=== PATIENT | male | born 1970 | race Caucasian/White ===

== ENCOUNTER 2024-11-08 08:22 | Emergency (ER) | payer SELFPAY ==
--- NOTE | ~2024-11-08 | XR_ITS ---
EXAMINATION: XR chest 1V portable DATE: 11/08/2024 08:56 INDICATION: Abdominal pain TECHNIQUE: frontal view of the chest was obtained. COMPARISON: None FINDINGS: Elevation the right hemidiaphragm with mild right basilar atelectasis. Minimal right pleural effusion with blunting at the costophrenic angle. Left lung is clear. No pulmonary edema or pneumothorax. Arc h size is normal. IMPRESSION: 1. Elevation right hemidiaphragm with right basilar atelectasis and minimal right pleural effusion. Reviewed, dictated and finalized at location A. IMPRESSION: 1. Elevation right hemidiaphragm with right basilar atelectasis and minimal rig ht pleural effusion.
--- NOTE | ~2024-11-08 | CT_ITS ---
History: Confusion PROCEDURE: CT head without contrast. COMPARISON: None TECHNIQUE: Axial imaging of the head performed from the skull base to the vertex without IV contrast. Sagittal a nd coronal reformations obtained. Examination is markedly limited by a significant amount of motion artifact. DLP: 1513 mGy-cm FINDINGS: The ventricles are unremarkable in size, shape and position, but enlarged, for patient of this age. The degree of ventricular enlargement is proportional to the sulcal prominence, suggesting diffuse at rophy. Bifrontal atrophy is demonstrated. There is no large mass, significant mass effect or significant midline shift. There is no abnormal extra-axial fluid collection or large intracranial hemorrhage. Significant deviation of the nasal septum is noted, with a prominent nasal spur towards the patient's right. Remaining paranasal sinuses are clear. The mastoid air cells are well aerated. No acute displaced fractures within the overlying cranium. Impression: No large acute intracranial hemorrhage or significant suspicious mass effect, as detailed above. Bifrontal atrophy and age advanced atrophy is also noted. Reviewed, dictated and finalized at location A. Impression: No large acute intracranial hemorrhage or significant suspicious mass effect, a s detailed above. Bifrontal atrophy and age advanced atrophy is also noted.
--- NOTE | ~2024-11-08 | CT_ITS ---
EXAMINATION: CT abdomen pelvis w con DATE: 11/08/2024 09:53 INDICATION: Abdominal distention TECHNIQUE: Computed tomography (CT) of the abdomen and pelvis was performed with 100 mL Omnipaque-350 intravenous contrast. Automated exposure control and iterative reconstruction technique were employe d. The dose-length product was 558.85 mGy-cm. COMPARISON: None FINDINGS: Heart size is normal. Atherosclerotic coronary artery calcific lesion. No pericardial effusion. Very small right pleural effusion. Mild elevation right hemidiaphragm with adjacent right basilar atelecta sis. This appears to result from prominent hepatomegaly with the right hepatic lobe measuring up to 3 0.2 cm craniocaudal length. There are multiple hypoechoic masses throughout the liver with relatively indistinct peripheral margins which are nearly confluent at the dome of the liver and concerning for metastatic disease. Aside from the masses there appears to be some underlying liver surface nodulari ty suggestive of cirrhosis. Cholecystectomy clips the gallbladder fossa. Spleen, pancreas, bilateral adrenal glands and left kidney are normal. There are 4 nonobstructing stones in the right kidney the largest measuring 4 mm. Bladder is normal. Bowels are normal with no evident wall thickening or obstr uction. The appendix is not definitively visualized. No pericecal inflammatory change to suggest acut e appendicitis. Small amount of ascites along the liver and the right upper quadrant and in the pelvi s. No abscess or free intraperitoneal gas. No pathologically enlarged abdominal or pelvic lymphadenop athy. Moderate lumbar and moderate lower thoracic spondylosis. IMPRESSION: 1. Enlarged and likely cirrhotic liver with numerous hypodense/hypoenhancing masses concerning for me tastatic disease potentially of hepatic primary malignancy with no other lesions suspicious for malig nick. Consider ultrasound-guided biopsy. 2. Small amount of ascites and very small right pleural effusion. Reviewed, dictated and finalized at location A. IMPRESSION: 1. Enlarged and likely cirrhotic liver with numerous hypodense/hypoenhancing ma sses concerning for metastatic disease potentially of hepatic primary malignanc y with no other lesions suspicious for malignancy. Consider ultrasound-guided b iopsy. 2. Small amount of ascites and very small right pleural effusion.
[2024-11-08 08:25] VITALS: TEMP 36.3
--- NOTE | 2024-11-08 08:31 | ECG_ITS ---
Test Date: 2024-11-08 08:46:14 Measurements Intervals [place] Rate: 107 P: 78 MT: 134 QRS: 80 QRSD: 97 T: -18 QT: 313 QTc: 419 Interpretive Statements SINUS TACHYCARDIA POSSIBLE INFERIOR MYOCARDIAL INFARCTION , PROBABLY OLD [30 ms Q WAVE IN II/aVF] ABNORMAL RHYTHM ECG No previous ECG available for comparison Electronically Signed On 11-08-2024 13:02:04 CDT by Jason Pollock M.D.
[2024-11-08 08:58] LABS: Hematocrit 29.5 % (40.0-54.0); Hemoglobin 9.1 g/dL (14.0-18.0); Immature Granulocyte Percent A 1.3 % (0.0-0.0); Lymphocytes Absolute Auto 1.86 K/mm3 (1.10-4.50); Mean Corpuscular HGB Conc 30.8 g/dL (32-36); Mean Corpuscular Hemoglobin 26.3 pg (27.0-31.0); Mean Corpuscular Volume 85.3 fL (78.0-102.0); Nucleated Red Blood Cells Absolute Auto 0.00 K/mm3 (0.00-0.00); Nucleated Red Blood Cells Perc 0.0 % (0-0.0); Platelet Count Result 389 K/mm3 (150-420); Red Blood Count 3.46 M/mm3 (4.70-6.10); White Blood Count 17.4 K/mm3 (4.8-10.8)
[2024-11-08 09:06] LABS: Alanine Aminotransferase 110 U/L (6-50); Albumin Level 2.7 g/dL (3.5-5.1); Alkaline Phosphatase > 1000 U/L (38-126); Anion Gap 8 mmol/L (4-12); Aspartate Amino Transferase 265 U/L (17-59); Bilirubin,Total 2.0 mg/dL (0.2-1.3); Blood Urea Nitrogen 21 mg/dL (9-20); Calcium 10.3 mg/dL (8.4-10.2); Carbon Dioxide 33 mmol/L (22-30); Chloride 88 mmol/L (98-107); Estimated CRCL calculation 88 ml/min; Estimated Glomerular Filt Rate > 60; Glucose 183 mg/dL (65-110); Lipase 240 U/L (23-300); Osmolality Calculated 276 mOsm/kg (285-295); Potassium 3.3 mmol/L (3.4-5.0); Sodium 129 mmol/L (137-145); Total Protein 6.4 g/dL (6.3-8.2)
[2024-11-08] MEDS: FUROSEMIDE INJ 40 MG/4 ML VIAL IV PUSH (09:09)
[2024-11-08 09:11] LABS: INR 1.2; Partial Thromboplastin Time 25.5 Sec (23.9-30.70); Prothrombin Time 12.9 Seconds (9.50-12.1)
--- OUTSIDE RECORDS SUMMARY | 2024-11-08 09:32 | XMS_ITS | Patient Health Record ---
Author Organization [facility] [employer] Address [address] [place] [address] [id number] Support Name Relationship Address Phone EMILY ARTHUR Guarantor Unknown Reason For Referral No Information Plan Of Treatment No Information Insurance Providers Payer Name Payer Address Payer Phone Subscriber Number Group Number Insured Name Patient Relationship to Insured Coverage Start Date [facility]age End Date [facility] [id number] [place] [address] [id number] EMILY MORALES Self - patient is the insured
--- OUTSIDE RECORDS SUMMARY | 2024-11-08 09:32 | XMS_ITS | Continuity of Care Document ---
Author Organization [facility] Address [address] [place] [address] Phone Care Team Providers Care Print Inspector Name Role Phone Librado Pinto MD Unavailable Unavailable Procedures Procedure Date ELECTROCARDIOGRAM REPORT EMERGENCY DEPT VISIT ELECTROCARDIOGRAM REPORT EMERGENCY DEPT VISIT BP scrn perf rec interval SUBSEQUENT HOSPITAL CARE HOSPITAL DISCHARGE DAY HT MUSCLE IMAGE SPECT MULT CARDIOVASCULAR STRESS TEST CARDIOVASCULAR STRESS TEST INITIAL HOSPITAL CARE EMERGENCY DEPT VISIT ELECTROCARDIOGRAM REPORT Advance Directives Directive Yes / No Effective Date File Name No Information Encounters Encounter Description Practice Location Reason(s) For Visit Diagnoses Date Provider Providers Copied on Encounter [facility], [address] [facility], [place], [place], [id number], tel:[phone] [facility] ER No Information [facility]. [address] [facility] [place] [id number], [place]. tel:[phone] Referring Provider: Tyler Cunningham, [address] [place], [address]. tel:[phone] [facility], [address] [facility] [place], [id number], tel:[phone] [facility] No Information [facility]av[facility] [address] [facility] [place] [id number], [place]. tel:[phone] Referring Provider: Tyler Cunningham, [address], [place], [address]. tel:[phone] [facility], [address], [place], [place], [id number], [place] tel:[phone] [facility] ER No Information Jessica Márquez. [address], [place], [id number], [place]. tel:[phone] [facility] C[facility], [address], [place], [id number], [place] tel:[phone] [facility] In Patient No Information Alesha Avila. [address], [place], [place], [id number], [place]. tel:[phone] [facility], [address], [place], [id number], [place] tel:[phone] [facility] In Patient No Information Jayson Feliciano. [address], [place], [place], [id number], [place]. tel:[phone] Referring Provider: Rocky Whalen, [address], [place], [address]. tel:[phone] INITIAL [facility] CARE [facility], [address], [place], [place], [id number], [place] tel:[phone] [facility] In Patient No Information Marlee Hidalgo. [address], [place], [place], [id number], [place]. tel:[phone] [facility], [address], [place], [place], [id number], [place] tel:[phone] [facility] ER No Information Napoleon Moses. [address], [place], [place], [id number], [place]. tel:[phone] Referring Provider: Josué Bender, [address] [facility], [place], [address]. tel:[phone] Family History Family Member Type Diagnosis Age At Onset No Information Payers Payer name Insurance type Covered alliance party ID Authoriza tiquentin(s) [employer] Medicare [facility] CI [id number] [facility] Medicare CI [id number] Social History Type Description Quantity Date Captured Comments Sex Male Smoking Status No Information Chief Complaint And Reason For Visit No Information Reason For Referral Reason For Referral No Information History Of Present Illness Encounter Date Complaint History Of Prese nt Illness No Information Functional Status Date Functional Assessmen t No Information Instructions Date Instruction Additional Infor mation No Information Assessments Type Assessment Date No Information Patient Care Teams Name Effective Dates (start - stop) Status Members No Information
[2024-11-08 09:34] LABS: Add Urine Microscopic? YES; Appearance Urine Clear (Clear); Glucose Urine UA Negative (Negative); Leukocyte Esterase Ur Negative LEU/UL (Negative); Nitrate Urine Negative (Negative); Specific Grav Ur 1.015 (1.010-1.020)
[2024-11-08] MEDS: cefTRIAXone 1 GM in SODIUM CHLORIDE 0.9% IV 50 ML 100 ML IVPB (10:09)
[2024-11-08] MEDS: ALBUMIN HUMAN 25% 25 GM/100 ML 100 ML IVPB (10:11)
[2024-11-08 10:51] LABS: Ammonia < 9 umol/L (9-30)
[2024-11-08 11:04] LABS: NT Pro B Type Natriuretic Pept 433 pg/mL (19.9-100)
--- NOTE | 2024-11-08 11:26 | ED_ITS ---
HPI - Extremity Problem General Chief complaint: Extremity Problem,Nontraumatic Stated complaint: edema to lower ext Time Seen by Provider: 11/08/24 08:23 Source: patient Mode of arrival: ambulatory Limitations: no limitations History of Present Illness HPI Narrative: this is a 54-year-old male with a history of what he states his liver cancer presents with lower extremity edema and distended abdomen with no fever chills currently no confusion no dysuria or hematuria no chest pain or shortness of breath no flank pain no nausea vomiting. Patient is nondrinker is currently on no medications. There is no confusion no altered mental status no neurological deficits. Complaint: extremity swelling Onset (ago): week(s) Pain Consistency: constant Location: lower extremity Related Data Home Medications ?Medication ?Instructions ?Recorded ?Confirmed ?Last Taken ?Type No Home Medications 11/08/24 11/08/24 Unknown History Allergies Allergy/AdvReac Type Severity Reaction Status Date / Time No Known Allergies Allergy Verified 11/08/24 08:32 Review of Systems 2 Review of Systems: All systems reviewed & are unremarkable except as noted in HPI and below PMFSH Past Medical History Medical History Liver cancer Exam 2 Const: General: no acute distress and ill appearing Nutritional Appearance: thin Orientation/consciousness: patient oriented x3 Limitations: no limitations HENMT: Head: normal to inspection Eyes: Conjunctivae: conjunctivae normal Pupils: Equal, round and reactive pupils present EOM: EOMs intact bilaterally Neck: Neck: normal visual inspection, no lymphadenopathy and no meningeal signs Chest: Chest palpation & inspection: normal inspection of the chest Resp: Effort & Inspection: normal respiratory effort Auscultation: clear to auscultation bilaterally Cardio: Rate: regular rate Rhythm: regular rhythm GI: GI Palp: Yes Soft to palpation Auscultation: normal bowel sounds : General: Yes bladder normal to palpation Urinary Catheter: Urinary Catheter: patent and draining Skin: General skin exam: normal color Rashes: no rashes Wounds: no wounds Neuro: General: patient oriented x3 and moves all extremities Cranial nerves: Yes Nystagmus not present Speech: normal speech Extrem: General: edema Course Course Emergency Course: patient with peripheral edema with a history of a cancer presents with edema bilateral lower extremities and had a CT scan of the abdomen and pelvis which shows likely cirrhotic liver with numerous hypodense hypoenhancing masses concerning for metastatic disease potentially a hepatic primary malignancy. Small amount of ascites and a very small right pleural effusion. Blood work shows a potassium 3.3 with a sodium of 129 white blood cell count of 17 albumin of 2.7 his AST and ALT are 265 and 110 respectively with lactic acid 6.1. BNP is 433. Chest x-ray shows small right pleural effusion otherwise no acute cardiopulmonary abnormalities. Ammonia level 7 CT scan of the day no acute abnormalities. Patient received 40 of Lasix, a.m. started on ceftriaxone and albumin infusion. Spoke to hospitalist at [facility] that accepted the patient for transfer. Vital Signs Vital signs: Vital Signs Temperature 36.3 C L 11/08/24 08:25 Temperature 36.3 C L 11/08/24 08:25 MDM - Extremity (Nontraumatic) Lab Data 11/08/24 08:48 11/08/24 08:48 Labs: Lab Results 11/08/24 11/08/24 11/08/24 Range/Units 08:48 08:53 09:20 WBC 17.4 H (4.8-10.8) K/mm3 RBC 3.46 L (4.70-6.10) M/mm3 Hgb 9.1 L (14.0-18.0) g/dL Hct 29.5 L (40.0-54.0) % MCV 85.3 (78.0-102.0) fL MCH 26.3 L (27.0-31.0) pg MCHC 30.8 L (32-36) g/dL RDW 24.7 H (11.6-14.4) % Plt Count 389 (150-420) K/mm3 MPV 9.8 (8.7-11.0) fl Immature Gran % (Auto) 1.3 H (0.0-0.0) % Neut % (Auto) 80.5 H (50.0-70.0) % Lymph % (Auto) 10.7 L (18.0-42.0) % [place] % (Auto) 6.8 (2.0-11.0) % Eos % (Auto) 0.6 L (1.0-6.0) % Baso % (Auto) 0.1 (0.0-1.0) % Lymph # (Auto) 1.86 (1.10-4.50) K/mm3 [place] # (Auto) 1.19 H (0.10-0.90) K/mm3 Eos # (Auto) 0.10 (0.02-0.50) K/mm3 Baso # (Auto) 0.02 (0.00-0.10) K/mm3 Abs Immat Gran (auto) 0.22 H (0.00-0.00) K/mm3 Absolute Neuts (auto) 14.00 H (1.70-7.20) K/mm3 Absolute Nucleated RBC 0.00 (0.00-0.00) K/mm3 Nucleated RBC % 0.0 (0-0.0) % PT 12.9 H (9.50-12.1) Seconds INR 1.2 APTT 25.5 (23.9-30.70) Sec Sodium 129 L (137-145) mmol/L Potassium 3.3 L (3.4-5.0) mmol/L Chloride 88 L (98-107) mmol/L Carbon Dioxide 33 H (22-30) mmol/L Anion Gap 8 (4-12) mmol/L BUN 21 H (9-20) mg/dL Creatinine 0.98 (0.7-1.3) mg/dL Estim Creat Clear Calc 88 ml/min Estimated GFR > 60 (59 - ) Glucose 183 H (65-110) mg/dL Calculated Osmolality 276 L (285-295) mOsm/kg Lactic Acid 6.1 H (0.4-2.0) mmol/L Calcium 10.3 H (8.4-10.2) mg/dL Total Bilirubin 2.0 H (0.2-1.3) mg/dL AST 265 H (17-59) U/L ALT 110 H (6-50) U/L Alkaline Phosphatase > 1000 H (38-126) U/L Ammonia (9-30) umol/L NT-Pro-B Natriuret Pep 433 H (19.9-100) pg/mL Total Protein 6.4 (6.3-8.2) g/dL Albumin 2.7 L (3.5-5.1) g/dL Lipase 240 (23-300) U/L Urine Color [place]onica A (Yellow) Urine Appearance Clear (Clear) Urine pH 6.0 (5.0-8.0) Ur Specific [place] 1.015 (1.010-1.020) Urine Protein Negative (Negative) Urine Glucose (UA) Negative (Negative) Urine Ketones Negative (Negative) Ur Blood (Man) Trace-intact H (Negative) Urine Nitrate Negative (Negative) Urine Bilirubin 1+ H (Negative) Urine Urobilinogen 1.0 (0.2-1.0) mg/dL Leukocyte Esterase Rfl Negative (Negative) WILIAN/UL Urine RBC 0-2 (0-2) /hpf Urine WBC 4-6 H (0-3) /hpf Ur Squamous Epith Cells Few (Few) /hpf Urine Bacteria Trace (None) /hpf 11/08/24 Range/Units 10:31 WBC (4.8-10.8) K/mm3 RBC (4.70-6.10) M/mm3 Hgb (14.0-18.0) g/dL Hct (40.0-54.0) % MCV (78.0-102.0) fL MCH (27.0-31.0) pg MCHC (32-36) g/dL RDW (11.6-14.4) % Plt Count (150-420) K/mm3 MPV (8.7-11.0) fl Immature Gran % (Auto) (0.0-0.0) % Neut % (Auto) (50.0-70.0) % Lymph % (Auto) (18.0-42.0) % [place] % (Auto) (2.0-11.0) % Eos % (Auto) (1.0-6.0) % Baso % (Auto) (0.0-1.0) % Lymph # (Auto) (1.10-4.50) K/mm3 [place] # (Auto) (0.10-0.90) K/mm3 Eos # (Auto) (0.02-0.50) K/mm3 Baso # (Auto) (0.00-0.10) K/mm3 Abs Immat Gran (auto) (0.00-0.00) K/mm3 Absolute Neuts (auto) (1.70-7.20) K/mm3 Absolute Nucleated RBC (0.00-0.00) K/mm3 Nucleated RBC % (0-0.0) % PT (9.50-12.1) Seconds INR APTT (23.9-30.70) Sec Sodium (137-145) mmol/L Potassium (3.4-5.0) mmol/L Chloride (98-107) mmol/L Carbon Dioxide (22-30) mmol/L Anion Gap (4-12) mmol/L BUN (9-20) mg/dL Creatinine (0.7-1.3) mg/dL Estim Creat Clear Calc ml/min Estimated GFR (59 - ) Glucose (65-110) mg/dL Calculated Osmolality (285-295) mOsm/kg Lactic Acid (0.4-2.0) mmol/L Calcium (8.4-10.2) mg/dL Total Bilirubin (0.2-1.3) mg/dL AST (17-59) U/L ALT (6-50) U/L Alkaline Phosphatase (38-126) U/L Ammonia < 9 L (9-30) umol/L NT-Pro-B Natriuret Pep (19.9-100) pg/mL Total Protein (6.3-8.2) g/dL Albumin (3.5-5.1) g/dL Lipase (23-300) U/L Urine Color (Yellow) Urine Appearance (Clear) Urine pH (5.0-8.0) Ur Specific [place] (1.010-1.020) Urine Protein (Negative) Urine Glucose (UA) (Negative) Urine Ketones (Negative) Ur Blood (Man) (Negative) Urine Nitrate (Negative) Urine Bilirubin (Negative) Urine Urobilinogen (0.2-1.0) mg/dL Leukocyte Esterase Rfl (Negative) WILIAN/UL Urine RBC (0-2) /hpf Urine WBC (0-3) /hpf Ur Squamous Epith Cells (Few) /hpf Urine Bacteria (None) /hpf Critical Care Time Critical Care Time Critical Care Time: No Discharge Plan Discharge Clinical Impression: Acute hyponatremia, Edema, peripheral Cirrhosis of liver Qualifiers: Hepatic cirrhosis type: unspecified hepatic cirrhosis Ascites presence: with ascites Qualified Code(s): K74.60 - Unspecified cirrhosis of liver Cancer of liver Qualifiers: Liver malignancy type: unspecified liver malignancy Qualified Code(s): C22.9 - Malignant neoplasm of liver, not specified as primary or secondary Patient Disposition: Acute Care Hospital Condition: Stable Patient Language: Faroese Prescriptions: No Action No Home Medications Follow-up/Referrals: PHYSICIAN,CLINICAL SCIENCE CONSULTANT [Primary Care Provider] - Time of Disposition: 12:17
[2024-11-08] MEDS: BENZONATATE 100 MG CAPSULE 200 MG PO (13:06)
--- NOTE | 2024-11-12 12:14 | PC.NURSE ---
Preliminary blood culture report; no growth in 48 hours.
--- NOTE | 2024-11-14 13:13 | PC.NURSE ---
final blood cultures x2 reviewed. no growth in 5 days. no change in plan of care
== END 2024-11-08 14:15 | disposition short-term general hospital (02) ==
PROVIDERS: Emergency Provider Emergency Medicine; Referring Provider Family Medicine
DX: K74.60 Unspecified cirrhosis of liver (principal); C22.9 Malignant neoplasm of liver, not specified as primary or secondary; E87.1 Hypo-osmolality and hyponatremia; R60.0 Localized edema
CPT/HCPCS: 36415; 70450; 71045; 74177; 80053; 81001; 82140; 83605; 83690; 83880; 85025; 85610; 85730; 93005; 96365; 96368; 96375; 99285; A9270; J0696; J1938; P9047; Q9967